=== PATIENT | female | born 1995 | race American Indian/Alaskan Native ===

== ENCOUNTER 2019-09-10 16:31 | Emergency (ER) | payer MEDICAID ==
[2019-09-10 16:53] LABS: Basophils % (Auto) 0.2 % (0.0-1.8); Hematocrit 36.9 % (30.3-42.9); Hemoglobin 12.9 gm/dl (10.1-14.3); Lymphocytes # (Auto) 1.9 K/mm3 (1.2-5.4); Lymphocytes % (Auto) 10.4 % (13.4-35.0); Mean Corpuscular HGB Conc 35 % (30-34); Mean Corpuscular Volume 92 fl (79-97); Monocytes # (Auto) 1.4 K/mm3 (0.0-0.8); Monocytes % (Auto) 7.3 % (0.0-7.3); Platelet Count 340 K/mm3 (140-440); Red Blood Count 3.99 M/mm3 (3.65-5.03); Red Cell Distribution Width 13.5 % (13.2-15.2)
[2019-09-10 17:13] LABS: Alanine Aminotransferase 20 units/L (7-56); Albumin 4.7 g/dL (3.9-5); BUN/Creatinine Ratio 25; Blood Urea Nitrogen 15 mg/dL (7-17); Calcium 9.5 mg/dL (8.4-10.2); Hemolysis Index 4
[2019-09-10] MEDS ORDERED: ONDANSETRON 4 MG/2 ML INJ IV ONE ×2 (17:43→22:07)
[2019-09-10] MEDS ORDERED: D5W/0.9% NACL 1,000 ML IV SCH ×3 (18:00→20:00)
--- NOTE | 2019-09-10 18:21 | Emergency Department Report ---
ED N/V/D HPI - General Chief complaint: Nausea/Vomiting/Diarrhea Stated complaint: N/V PUI?: No Time Seen by Provider: 09/10/19 17:50 Source: patient Mode of arrival: Ambulatory Limitations: No Limitations - History of Present Illness Initial comments: 23-year-old female with no significant past medical surgical history presents to the hospital 8 weeks with p.o. intolerance secondary nausea and vomiting for the past 2 days. This is patient's fourth , she has 1 child, history of 2 abortions. Patient states she had a outpatient ultrasound today showing IUP and was subsequently advised to come to the ED by her [facility] doctor for IV hydration due to p.o. intolerance. Patient is taking Phenergan suppositories without improvement in p.o. intake and nausea. Patient complains generalized dull abdominal pain. She denies hematochezia, hematemesis, diarrhea, fever, melena, dysuria, or cough or cold symptoms. Pt had similar n/v with her last . [facility]: [facility] - Related Data Previous Rx's Medication Instructions Recorded Last Taken Type Ondansetron [Zofran Odt] 4 mg PO Q8HR PRN #20 tab.rapdis 09/10/19 Unknown Rx Allergies Allergy/AdvReac Type Severity Reaction Status Date / Time No Known Allergies Allergy Verified 09/10/19 16:34 ED Review of Systems ROS: Stated complaint: N/V Other details as noted in HPI Comment: All other systems reviewed and negative ED Past Medical Hx - Past Medical History Previous Medical History?: No - Surgical History Past Surgical History?: No - Social History Smoking Status: Never Smoker Substance Use Type: None - Medications Home Medications: Home Medications Medication Instructions Recorded Confirmed Last Taken Type Ondansetron [Zofran Odt] 4 mg PO Q8HR PRN #20 tab.rapdis 09/10/19 Unknown Rx ED Physical Exam - General Limitations: No Limitations - Other Other exam information: General: No acute distress Head: Atraumatic Eyes: normal appearance ENT: Moist mucous membranes Neck: Normal appearance, no midline tenderness Chest: Clear to auscultation bilaterally CV: Regular rate and rhythm Abdomen: Soft, normal bowel sounds, mild epigastric tenderness, nondistended, no rebound or guard Back: Normal inspection Extremity: Normal inspection, full range of motion Neuro: Alert O x 3, no facial asymmetry, speech clear, no gross motor sensory deficit Psych: Appropriate behavior Skin: No rash ED Course Vital Signs 09/10/19 09/10/19 09/10/19 16:35 17:53 19:00 Temperature 98.8 F 98.8 F Pulse Rate 93 H 93 H 80 Respiratory 20 20 15 Rate Blood Pressure 125/72 Blood Pressure 145/89 145/89 [Left] O2 Sat by Pulse 100 100 99 Oximetry 09/10/19 09/10/19 09/10/19 19:07 19:46 20:00 Temperature Pulse Rate 82 83 Respiratory 18 18 15 Rate Blood Pressure 125/72 140/86 Blood Pressure [Left] O2 Sat by Pulse 100 100 100 Oximetry 09/10/19 09/10/19 09/10/19 20:16 20:30 20:46 Temperature Pulse Rate 90 73 85 Respiratory 15 17 16 Rate Blood Pressure 125/72 125/72 125/72 Blood Pressure [Left] O2 Sat by Pulse 99 100 100 Oximetry 09/10/19 09/10/19 09/10/19 21:00 21:24 21:30 Temperature Pulse Rate 87 Respiratory 14 Rate Blood Pressure 131/77 140/86 140/86 Blood Pressure [Left] O2 Sat by Pulse 99 99 100 Oximetry 09/10/19 09/10/19 21:46 21:57 Temperature Pulse Rate 84 Respiratory Rate Blood Pressure 140/86 Blood Pressure [Left] O2 Sat by Pulse 100 Oximetry ED Medical Decision Making - Lab Data Result diagrams: 09/10/19 16:43 09/10/19 16:43 Lab Results 09/10/19 09/10/19 09/10/19 Range/Units 16:43 16:43 16:43 WBC 18.5 H (4.5-11.0) K/mm3 RBC 3.99 (3.65-5.03) M/mm3 Hgb 12.9 (10.1-14.3) gm/dl Hct 36.9 (30.3-42.9) % MCV 92 (79-97) fl MCH 32 (28-32) pg MCHC 35 H (30-34) % RDW 13.5 (13.2-15.2) % Plt Count 340 (140-440) K/mm3 Lymph % (Auto) 10.4 L (13.4-35.0) % Ross % (Auto) 7.3 (0.0-7.3) % Eos % (Auto) 0.0 (0.0-4.3) % Baso % (Auto) 0.2 (0.0-1.8) % Lymph # 1.9 (1.2-5.4) K/mm3 Ross # 1.4 H (0.0-0.8) K/mm3 Eos # 0.0 (0.0-0.4) K/mm3 Baso # 0.0 (0.0-0.1) K/mm3 Seg Neutrophils % 82.1 H (40.0-70.0) % Seg Neutrophils # 15.2 H (1.8-7.7) K/mm3 Sodium 132 L (137-145) mmol/L Potassium 3.0 L (3.6-5.0) mmol/L Chloride 91.8 L (98-107) mmol/L Carbon Dioxide 21 L (22-30) mmol/L Anion Gap 22 mmol/L BUN 15 (7-17) mg/dL Creatinine 0.6 L (0.7-1.2) mg/dL Estimated GFR > 60 ml/min BUN/Creatinine Ratio 25 % Glucose 99 (65-100) mg/dL Calcium 9.5 (8.4-10.2) mg/dL Magnesium (1.7-2.3) mg/dL Total Bilirubin 0.70 (0.1-1.2) mg/dL AST 21 (5-40) units/L ALT 20 (7-56) units/L Alkaline Phosphatase 48 (35-129) units/L Total Protein 8.7 H (6.3-8.2) g/dL Albumin 4.7 (3.9-5) g/dL Albumin/Globulin Ratio 1.2 % Lipase (13-60) units/L HCG, Qual Positive (Negative) Urine Color (Yellow) Urine Turbidity (Clear) Urine pH (5.0-7.0) Ur Specific [place] (1.003-1.030) Urine Protein (Negative) mg/dL Urine Glucose (UA) (Negative) mg/dL Urine Ketones (Negative) mg/dL Urine Blood (Negative) Urine Nitrite (Negative) Urine Bilirubin (Negative) Urine Urobilinogen (<2.0) mg/dL Ur Leukocyte Esterase (Negative) Urine WBC (Auto) (0.0-6.0) /HPF Urine RBC (Auto) (0.0-6.0) /HPF U Epithel Cells (Auto) (0-13.0) /HPF Urine Mucus /HPF 09/10/19 09/10/19 09/10/19 Range/Units 16:43 16:43 Unknown WBC (4.5-11.0) K/mm3 RBC (3.65-5.03) M/mm3 Hgb (10.1-14.3) gm/dl Hct (30.3-42.9) % MCV (79-97) fl MCH (28-32) pg MCHC (30-34) % RDW (13.2-15.2) % Plt Count (140-440) K/mm3 Lymph % (Auto) (13.4-35.0) % Ross % (Auto) (0.0-7.3) % Eos % (Auto) (0.0-4.3) % Baso % (Auto) (0.0-1.8) % Lymph # (1.2-5.4) K/mm3 Ross # (0.0-0.8) K/mm3 Eos # (0.0-0.4) K/mm3 Baso # (0.0-0.1) K/mm3 Seg Neutrophils % (40.0-70.0) % Seg Neutrophils # (1.8-7.7) K/mm3 Sodium (137-145) mmol/L Potassium (3.6-5.0) mmol/L Chloride (98-107) mmol/L Carbon Dioxide (22-30) mmol/L Anion Gap mmol/L BUN (7-17) mg/dL Creatinine (0.7-1.2) mg/dL Estimated GFR ml/min BUN/Creatinine Ratio % Glucose (65-100) mg/dL Calcium (8.4-10.2) mg/dL Magnesium 2.20 (1.7-2.3) mg/dL Total Bilirubin (0.1-1.2) mg/dL AST (5-40) units/L ALT (7-56) units/L Alkaline Phosphatase (35-129) units/L Total Protein (6.3-8.2) g/dL Albumin (3.9-5) g/dL Albumin/Globulin Ratio % Lipase 14 (13-60) units/L HCG, Qual (Negative) Urine Color [place] (Yellow) Urine Turbidity Slightly-cloudy (Clear) Urine pH 6.0 (5.0-7.0) Ur Specific [place] 1.035 H (1.003-1.030) Urine Protein 100 mg/dl (Negative) mg/dL Urine Glucose (UA) Neg (Negative) mg/dL Urine Ketones 80 (Negative) mg/dL Urine Blood Mod (Negative) Urine Nitrite Neg (Negative) Urine Bilirubin Neg (Negative) Urine Urobilinogen 2.0 (<2.0) mg/dL Ur Leukocyte Esterase Neg (Negative) Urine WBC (Auto) 3.0 (0.0-6.0) /HPF Urine RBC (Auto) 57.0 (0.0-6.0) /HPF U Epithel Cells (Auto) 21.0 H (0-13.0) /HPF Urine Mucus 3+ /HPF - Medical Decision Making wbc count 18, no signs of infection at this time pt feeling better after 3 L D5NS and zofran 8mg IV tolerating po. received kcl 40meq x1 will be d/césar with zofran and rec f/u - Differential Diagnosis Gastritis, nausea vomiting in , UTI, biliary colic, pancreatitis Critical Care Time: No Critical care attestation.: If time is entered above; I have spent that time in minutes in the direct care of this critically ill patient, excluding procedure time. ED Disposition Clinical Impression: Nausea and vomiting during , Hypokalemia Disposition: - TO HOME OR SELFCARE Is pt being admited?: No Does the pt Need Aspirin: No Condition: Stable Instructions: Hyperemesis Gravidarum (ED), Hypokalemia (ED) Additional Instructions: Take the medication as prescribed. Follow-up with your doctor or doctor/clinic provided. Return if symptoms worsen as indicated by your discharge instructions. Prescriptions: Ondansetron [Zofran Odt] 4 mg PO Q8HR PRN #20 tab.rapdis PRN Reason: Nausea And Vomiting Referrals: [facility] [Provider Group] - 3-5 Days Time of Disposition: 23:33
[2019-09-10 18:57] LABS: Bilirubin,Urine NEG (Negative); Blood,Urine MOD (Negative); Color,Urine Amber (Yellow); Mucus,Urine 3+ /HPF
[2019-09-10] MEDS ORDERED: POTASSIUM CHLORIDE ER 20 MEQ TAB PO ONE (19:21)
[2019-09-10] MEDS ORDERED: FAMOTIDINE 20 MG/2 ML INJ IV ONE (19:21)
[2019-09-10 23:42] VITALS: BP 126/60
== END 2019-09-10 23:42 | disposition home or self-care (01) ==
LOC: ED 16:31
DX: O21.8 Other vomiting complicating pregnancy (principal); O26.891 Other specified pregnancy related conditions, first trimester; E87.6 Hypokalemia; Z3A.08 8 weeks gestation of pregnancy; Z79.899 Other long term (current) drug therapy
CPT/HCPCS: 36415; 80053; 81001; 83690; 83735; 84703; 85025; 96361; 96374; 96375; 96376; 99284; J2405; J7042

== ENCOUNTER 2019-09-13 09:47 | Emergency (ER) | payer MEDICAID ==
[2019-09-13] MEDS ORDERED: METOCLOPRAMIDE 10 MG/2 ML INJ IV ONE (10:58)
[2019-09-13] MEDS ORDERED: FAMOTIDINE 20 MG/2 ML INJ IV ONE (10:58)
[2019-09-13] MEDS ORDERED: D5W/0.9% NACL 1,000 ML IV SCH ×2 (11:00)
--- NOTE | 2019-09-13 11:01 | Emergency Department Report ---
ED N/V/D HPI - General Chief complaint: Nausea/Vomiting/Diarrhea Stated complaint: 8WKS /N/V Time Seen by Provider: 09/13/19 10:56 Source: patient Mode of arrival: Ambulatory Limitations: No Limitations - History of Present Illness Initial comments: Patient is a 23-year-old F [place] female was approximately 8 weeks who is presenting with nausea vomiting. Patient states she is only been able to keep very small amounts of water down the last several days. Patient was here 3 days ago and received 3 L of D5 normal saline and Zofran. Patient states she was feeling much improved at the time of discharge and for the first 24 hours a fter leaving the emergency department but her symptoms returned. Patient is having difficulty sleeping and she does feel some dizziness upon standing. She denies vaginal bleeding discharge or dysuria. States she has some vomit which was blood-tinged earlier today. - Related Data Previous Rx's Medication Instructions Recorded Last Taken Type Ondansetron [Zofran Odt] 4 mg PO Q8HR PRN #20 tab.rapdis 09/10/19 Unknown Rx Promethazine [Phenergan] 25 mg [place] Q6HR PRN #14 supp.rect 09/13/19 Unknown Rx Allergies Allergy/AdvReac Type Severity Reaction Status Date / Time No Known Allergies Allergy Verified 09/10/19 16:34 ED Review of Systems ROS: Stated complaint: 8WKS /N/V Other details as noted in HPI Comment: All other systems reviewed and negative ED Past Medical Hx - Past Medical History Previous Medical History?: Yes Additional medical history: Hyperemesis gravidarum - Surgical History Past Surgical History?: No - Social History Smoking Status: Never Smoker Substance Use Type: None - Medications Home Medications: Home Medications Medication Instructions Recorded Confirmed Last Taken Type Ondansetron [Zofran Odt] 4 mg PO Q8HR PRN #20 tab.rapdis 09/10/19 Unknown Rx Promethazine [Phenergan] 25 mg [place] Q6HR PRN #14 supp.rect 09/13/19 Unknown Rx ED Physical Exam - General Limitations: No Limitations General appearance: alert, in no apparent distress - Head Head exam: Present: atraumatic, normocephalic - Eye Eye exam: Present: normal appearance - ENT ENT exam: Present: normal orophraynx, mucous membranes moist - Neck Neck exam: Present: normal inspection - Respiratory Respiratory exam: Present: normal lung sounds bilaterally. Absent: respiratory distress, wheezes, rales - Cardiovascular Cardiovascular Exam: Present: regular rate, normal rhythm, normal heart sounds. Absent: systolic murmur, diastolic murmur, rubs, gallop - GI/Abdominal GI/Abdominal exam: Present: soft, tenderness (Epigastric), normal bowel sounds. Absent: distended, guarding, rebound - Extremities Exam Extremities exam: Present: normal inspection - Back Exam Back exam: Present: normal inspection - Neurological Exam Neurological exam: Present: alert, oriented X3 - Psychiatric Psychiatric exam: Present: normal affect, normal mood - Skin Skin exam: Present: warm, dry, intact, normal color. Absent: rash ED Course Vital Signs 09/13/19 09/13/19 09:50 12:13 Temperature 98.5 F Pulse Rate 115 H 91 H Respiratory 20 16 Rate Blood Pressure 152/99 Blood Pressure 137/95 [Left] O2 Sat by Pulse 100 99 Oximetry ED Medical Decision Making - Lab Data Result diagrams: 09/13/19 11:23 09/13/19 11:23 Lab Results 09/13/19 09/13/19 09/13/19 Range/Units 11:23 11:23 12:12 WBC 15.5 H (4.5-11.0) K/mm3 RBC 4.38 (3.65-5.03) M/mm3 Hgb 14.2 (10.1-14.3) gm/dl Hct 40.1 (30.3-42.9) % MCV 91 (79-97) fl MCH 33 H (28-32) pg MCHC 36 H (30-34) % RDW 13.2 (13.2-15.2) % Plt Count 334 (140-440) K/mm3 Lymph % (Auto) 10.1 L (13.4-35.0) % [place] % (Auto) 6.9 (0.0-7.3) % Eos % (Auto) 0.2 (0.0-4.3) % Baso % (Auto) 0.3 (0.0-1.8) % Lymph # 1.6 (1.2-5.4) K/mm3 [place] # 1.1 H (0.0-0.8) K/mm3 Eos # 0.0 (0.0-0.4) K/mm3 Baso # 0.0 (0.0-0.1) K/mm3 Seg Neutrophils % 82.5 H (40.0-70.0) % Seg Neutrophils # 12.8 H (1.8-7.7) K/mm3 Sodium 130 L (137-145) mmol/L Potassium 3.2 L (3.6-5.0) mmol/L Chloride 93.2 L (98-107) mmol/L Carbon Dioxide 18 L (22-30) mmol/L Anion Gap 22 mmol/L BUN 12 (7-17) mg/dL Creatinine 0.6 L (0.7-1.2) mg/dL Estimated GFR > 60 ml/min BUN/Creatinine Ratio 20 % Glucose 94 (65-100) mg/dL Calcium 9.6 (8.4-10.2) mg/dL Total Bilirubin 0.60 (0.1-1.2) mg/dL AST 18 (5-40) units/L ALT 21 (7-56) units/L Alkaline Phosphatase 54 (35-129) units/L Total Protein 8.3 H (6.3-8.2) g/dL Albumin 4.7 (3.9-5) g/dL Albumin/Globulin Ratio 1.3 % Lipase 15 (13-60) units/L Urine Color Yellow (Yellow) Urine Turbidity Clear (Clear) Urine pH 6.0 (5.0-7.0) Ur Specific [place] 1.030 (1.003-1.030) Urine Protein 100 mg/dl (Negative) mg/dL Urine Glucose (UA) Neg (Negative) mg/dL Urine Ketones 80 (Negative) mg/dL Urine Blood Sm (Negative) Urine Nitrite Neg (Negative) Urine Bilirubin Neg (Negative) Urine Urobilinogen 2.0 (<2.0) mg/dL Ur Leukocyte Esterase Neg (Negative) Urine WBC (Auto) 5.0 (0.0-6.0) /HPF Urine RBC (Auto) 17.0 (0.0-6.0) /HPF U Epithel Cells (Auto) 9.0 (0-13.0) /HPF Urine Bacteria (Auto) 1+ (Negative) /HPF Urine Mucus 3+ /HPF - Medical Decision Making Patient is a 23-year-old F [place] female approximately 8 weeks who is presenting with uncontrollable nausea and vomiting. Patient still has a considerable amount of ketones in her urine. Patient was given 2 L of D5 normal saline and she states she is much improved. Patient was able to tolerate p.o. Patient has been on Zofran ODT at home will also give her some Phenergan suppositories as well. Patient be discharged. Critical care attestation.: If time is entered above; I have spent that time in minutes in the direct care of this critically ill patient, excluding procedure time. ED Disposition Clinical Impression: Hyperemesis gravidarum, Dehydration, Ketonuria, Nausea and vomiting during Disposition: DC-01 TO HOME OR SELFCARE Is pt being admited?: No Does the pt Need Aspirin: No Condition: Stable Instructions: Hyperemesis Gravidarum (ED) Prescriptions: Promethazine [Phenergan] 25 mg [place] Q6HR PRN #14 supp.rect PRN Reason: Nausea Time of Disposition: 14:37
[2019-09-13 11:36] LABS: Basophils % (Auto) 0.3 % (0.0-1.8); Eosinophils % (Auto) 0.2 % (0.0-4.3); Hematocrit 40.1 % (30.3-42.9); Hemoglobin 14.2 gm/dl (10.1-14.3); Lymphocytes # (Auto) 1.6 K/mm3 (1.2-5.4); Lymphocytes % (Auto) 10.1 % (13.4-35.0); Mean Corpuscular HGB Conc 36 % (30-34); Mean Corpuscular Volume 91 fl (79-97); Monocytes # (Auto) 1.1 K/mm3 (0.0-0.8); Monocytes % (Auto) 6.9 % (0.0-7.3); Platelet Count 334 K/mm3 (140-440); Red Blood Count 4.38 M/mm3 (3.65-5.03); Red Cell Distribution Width 13.2 % (13.2-15.2)
[2019-09-13 11:55] LABS: Alanine Aminotransferase 21 units/L (7-56); Albumin 4.7 g/dL (3.9-5); BUN/Creatinine Ratio 20; Blood Urea Nitrogen 12 mg/dL (7-17); Calcium 9.6 mg/dL (8.4-10.2); Hemolysis Index 27
[2019-09-13 13:00] LABS: Bacteria,Urine 1+ /HPF (Negative); Bilirubin,Urine NEG (Negative); Blood,Urine SM (Negative); Color,Urine Yellow (Yellow); Mucus,Urine 3+ /HPF
[2019-09-13 14:37] VITALS: BP 133/85
== END 2019-09-13 15:29 | disposition home or self-care (01) ==
LOC: ED 09:47
DX: O21.0 Mild hyperemesis gravidarum (principal); O21.9 Vomiting of pregnancy, unspecified; O26.891 Other specified pregnancy related conditions, first trimester; E86.0 Dehydration; R82.4 Acetonuria; Z79.899 Other long term (current) drug therapy; Z3A.08 8 weeks gestation of pregnancy
CPT/HCPCS: 36415; 80053; 81001; 83690; 85025; 96361; 96374; 96375; 99283; J2765; J7042

== ENCOUNTER 2019-10-08 16:40 | Emergency (ER) | payer MEDICAID ==
[2019-10-08] MEDS ORDERED: diphenhydrAMINE 50 MG/ML VIAL IV ONE (17:25)
[2019-10-08] MEDS ORDERED: SODIUM CHLORIDE 0.9% 1000 ML 1,000 ML IV ONE (17:25)
[2019-10-08] MEDS ORDERED: METOCLOPRAMIDE 10 MG/2 ML INJ IV ONE (17:25)
--- NOTE | 2019-10-08 17:27 | Event Note ---
ED Screening Note Date of service: 10/08/19 Time: 17:23 ED Screening Note: This is a 23-year-old G2, P1 who presents the ED at approximately 12-week gestation followed by [facility] [employer] presents to ED with vomiting that began that began this morning and has been unable to eat any food. This initial assessment/diagnostic orders/clinical plan/treatment(s) is/are subject to change based on patients health status, clinical progression and re- assessment by fellow clinical providers in the ED. Further treatment and workup at subsequent clinical providers discretion. Patient/guardian urged not to elope from the ED as their condition may be serious if not clinically assessed and managed. Initial orders include: Labs, IVF, Zofran
[2019-10-08 18:09] LABS: Hematocrit 34.2 % (30.3-42.9); Hemoglobin 11.6 gm/dl (10.1-14.3); Mean Corpuscular HGB Conc 34 % (30-34); Mean Corpuscular Volume 93 fl (79-97); Platelet Count 318 K/mm3 (140-440); Red Blood Count 3.67 M/mm3 (3.65-5.03); Red Cell Distribution Width 13.6 % (13.2-15.2)
[2019-10-08 18:23] LABS: Alanine Aminotransferase 12 units/L (7-56); Albumin 4.2 g/dL (3.9-5); BUN/Creatinine Ratio 14; Blood Urea Nitrogen 7 mg/dL (7-17); Calcium 9.8 mg/dL (8.4-10.2); Hemolysis Index 4
[2019-10-08 18:32] LABS: Bilirubin,Urine NEG (Negative); Blood,Urine NEG (Negative); Color,Urine Yellow (Yellow); Mucus,Urine 3+ /HPF; Urobilinogen,Urine < 2.0 mg/dL (<2.0)
--- NOTE | 2019-10-08 19:11 | Emergency Department Report ---
ED N/V/D HPI - General Chief complaint: Abdominal Pain Stated complaint: 12 WKS /VOMITING Time Seen by Provider: 10/08/19 19:04 Source: patient Mode of arrival: Ambulatory Limitations: No Limitations - History of Present Illness Initial comments: This is a 23-year-old female nontoxic, well nourished in appearance, no acute signs of distress presents to the ED with c/o of nausea and vomiting 1 day. Patient is 12 weeks . Denies any vaginal bleeding. Patient describes vomiting as food content. Patient denies any abdominal pain, pelvic pain, chest pain, short of breath, fever, chills, headache, stiff neck, numbness or tingling. Patient denies any diarrhea or constipation. Denies any blood in stool. Patient denies any recent travels. Patient denies any drug allergies significant past medical history. MD complaint: nausea, vomiting -: days(s) Description of Vomiting: food contents Associated Abdominal Pain: No Radiation: none Pain Scale: 0 Improves with: none Worsens with: none Associated Symptoms: nausea/vomiting. denies: myalgias, chest pain, cough, diaphoresis, fever/chills, headaches, loss of appetite, malaise, rash, dysuria, shortness of breath, syncope, weakness - Related Data Previous Rx's Medication Instructions Recorded Last Taken Type Ondansetron [Zofran Odt] 4 mg PO Q8HR PRN #20 tab.rapdis 09/10/19 Unknown Rx Promethazine [Phenergan] 25 mg [place] Q6HR PRN #14 supp.rect 09/13/19 Unknown Rx Metoclopramide [Reglan] 10 mg PO Q12H PRN #12 tab 10/08/19 Unknown Rx Allergies Allergy/AdvReac Type Severity Reaction Status Date / Time No Known Allergies Allergy Verified 09/10/19 16:34 ED Review of Systems ROS: Stated complaint: 12 WKS /VOMITING Other details as noted in HPI Constitutional: denies: chills, fever Eyes: denies: eye pain, eye discharge, vision change ENT: denies: ear pain, throat pain Respiratory: denies: cough, shortness of breath, wheezing Cardiovascular: denies: chest pain, palpitations Endocrine: no symptoms reported Gastrointestinal: nausea, vomiting. denies: abdominal pain, diarrhea Genitourinary: denies: urgency, dysuria, discharge Musculoskeletal: denies: back pain, joint swelling, arthralgia Skin: denies: rash, lesions Neurological: denies: headache, weakness, paresthesias Psychiatric: denies: anxiety, depression Hematological/Lymphatic: denies: easy bleeding, easy bruising ED Past Medical Hx - Past Medical History Previous Medical History?: Yes Additional medical history: Hyperemesis gravidarum - Surgical History Past Surgical History?: No - Social History Smoking Status: Never Smoker Substance Use Type: None - Medications Home Medications: Home Medications Medication Instructions Recorded Confirmed Last Taken Type Ondansetron [Zofran Odt] 4 mg PO Q8HR PRN #20 tab.rapdis 09/10/19 Unknown Rx Promethazine [Phenergan] 25 mg [place] Q6HR PRN #14 supp.rect 09/13/19 Unknown Rx Metoclopramide [Reglan] 10 mg PO Q12H PRN #12 tab 10/08/19 Unknown Rx ED Physical Exam - General Limitations: No Limitations General appearance: alert, in no apparent distress - Head Head exam: Present: atraumatic, normocephalic - Eye Eye exam: Present: normal appearance - Neck Neck exam: Present: normal inspection, full ROM. Absent: tenderness, meningismus, lymphadenopathy - Respiratory Respiratory exam: Present: normal lung sounds bilaterally. Absent: respiratory distress, wheezes, rales, rhonchi, stridor, chest wall tenderness, accessory muscle use, decreased breath sounds, prolonged expiratory - Cardiovascular Cardiovascular Exam: Present: regular rate, normal rhythm, normal heart sounds. Absent: bradycardia, tachycardia, irregular rhythm, systolic murmur, diastolic murmur, rubs, gallop - GI/Abdominal GI/Abdominal exam: Present: soft, normal bowel sounds. Absent: distended, tenderness, guarding, rebound, rigid, diminished bowel sounds - Extremities Exam Extremities exam: Present: normal inspection, full ROM - Back Exam Back exam: Present: normal inspection, full ROM - Neurological Exam Neurological exam: Present: alert, oriented X3, normal gait - Psychiatric Psychiatric exam: Present: normal affect, normal mood - Skin Skin exam: Present: warm, dry, intact, normal color. Absent: rash ED Course Vital Signs 10/08/19 10/08/19 16:45 18:16 Temperature 97.9 F Pulse Rate 86 Respiratory 20 20 Rate Blood Pressure 152/101 O2 Sat by Pulse 99 99 Oximetry - Reevaluation(s) Reevaluation #1: 10/08/19 19:11 Patient is speaking in full sentences with no signs of distress noted. ED Medical Decision Making - Lab Data Result diagrams: 10/08/19 17:32 10/08/19 17:32 - Medical Decision Making This is a 23-year-old female that presents with hyperemesis gravidarum. Patient is stable and was examined by me. There is no abdominal tenderness. Negative signs of symptoms of appendicitis, cholecystitis or acute abdomen. Labs obtained. UA obtained. Patient is notified of the report with no questions noted by the patient. Vital signs are stable prior to discharge. Patient received medical treatment in the ED which patient stated symptoms has resovled and subsided. A by mouth challenge has been obtained and patient tolerated well with no nausea vomiting. Patient was also instructed to Follow-up with a OBGYN doctor in 3-5 days or if symptoms worsen and continue return to emergency room as soon as possible. At time of discharge, the patient does not seem toxic or ill in appearance. No acute signs of distress noted. Patient agrees to discharge treatment plan of care. No further questions noted by the patient. Critical care attestation.: If time is entered above; I have spent that time in minutes in the direct care of this critically ill patient, excluding procedure time. ED Disposition Clinical Impression: Hyperemesis gravidarum Disposition: DC-01 TO HOME OR SELFCARE Is pt being admited?: No Does the pt Need Aspirin: No Condition: Stable Instructions: Hyperemesis Gravidarum (ED) Additional Instructions: Follow-up with a OBGYN doctor in 3-5 days or if symptoms worsen and continue return to emergency room as soon as possible. Prescriptions: Metoclopramide [Reglan] 10 mg PO Q12H PRN #12 tab PRN Reason: Nausea Referrals: PRIMARY CARE, [Primary Care Provider] - 3-5 Days KAREN EMMANUEL MD [Staff Physician] - 3-5 Days [facility] [Provider Group] - 3-5 Days Forms: Work/School Release Form(ED)
[2019-10-08 19:30] LABS: Basophils % (Manual) 0 % (0.0-1.8); Eosinophils % (Manual) 0 % (0.0-4.3); RBC Morphology Normal; Total Cells Counted 100
[2019-10-08 19:31] VITALS: BP 134/96
== END 2019-10-08 19:29 | disposition home or self-care (01) ==
LOC: ED 16:40
DX: O21.0 Mild hyperemesis gravidarum (principal); Z3A.12 12 weeks gestation of pregnancy; Z79.899 Other long term (current) drug therapy
CPT/HCPCS: 36415; 80053; 81001; 83690; 85007; 85025; 96361; 96374; 96375; 99283; J1200; J2765; J7030

== ENCOUNTER 2019-10-14 00:14 | Emergency (ER) | payer MEDICAID ==
[2019-10-14 00:33] VITALS: BP 140/93
[2019-10-14 01:08] LABS: Basophils % (Auto) 0.1 % (0.0-1.8); Hematocrit 34.9 % (30.3-42.9); Hemoglobin 12.6 gm/dl (10.1-14.3); Lymphocytes # (Auto) 1.3 K/mm3 (1.2-5.4); Lymphocytes % (Auto) 8.5 % (13.4-35.0); Mean Corpuscular HGB Conc 36 % (30-34); Mean Corpuscular Volume 93 fl (79-97); Monocytes % (Auto) 6.9 % (0.0-7.3); Platelet Count 373 K/mm3 (140-440); Red Blood Count 3.74 M/mm3 (3.65-5.03); Red Cell Distribution Width 13.1 % (13.2-15.2)
[2019-10-14 01:30] LABS: Alanine Aminotransferase 19 units/L (7-56); Albumin 4.3 g/dL (3.9-5); BUN/Creatinine Ratio 10; Blood Urea Nitrogen 6 mg/dL (7-17); Calcium 9.5 mg/dL (8.4-10.2); Hemolysis Index 1
[2019-10-14 01:43] LABS: Bilirubin,Urine SM (Negative); Blood,Urine MOD (Negative); Color,Urine Amber (Yellow); Mucus,Urine 3+ /HPF
[2019-10-14 01:53] LABS: Ictotest,Urine Negative (Negative)
[2019-10-14] MEDS ORDERED: METOCLOPRAMIDE 10 MG/2 ML INJ IV STA (02:05)
[2019-10-14] MEDS ORDERED: PYRIDOXINE 50 MG TAB PO STA (02:05)
[2019-10-14] MEDS ORDERED: diphenhydrAMINE 50 MG/ML VIAL IV STA (02:05)
[2019-10-14] MEDS ORDERED: SODIUM CHLORIDE 0.9% 1000 ML 1,000 ML IV ONE (02:05)
--- NOTE | 2019-10-14 02:09 | Emergency Department Report ---
ED N/V/D HPI - General Chief complaint: Nausea/Vomiting/Diarrhea Stated complaint: VOMITING(APPROX 13 WKS PREG) Time Seen by Provider: 10/14/19 02:04 Source: patient Mode of arrival: Ambulatory Limitations: No Limitations - History of Present Illness Initial comments: 23-year-old F Filipino female 13 weeks presents emergency department complaining of a continuous cyclic episode of hyperemesis gravidarum was here a few a few days ago treated in the hospital symptoms completely resolve while she was here but she returned to taking the Phenergan suppository that was applied by her [facility] and her symptoms began to reemerge. She attempted to be seen at her at her [facility] twice since she was last seen at this facility but was unsuccessful with obtaining a person to speak to in the office. States that is been very hard to follow-up or have the doctor call you back for reasons unknown so she came to the emergency department for further evaluation and treatment options. Reports no vaginal bleeding no hemoptysis no hematemesis no hematoch ezia. Does have some cramping to her lower lower abdomen off and on states that she is had some mild weight loss which she thinks is been due to the vomiting. - Related Data Previous Rx's Medication Instructions Recorded Last Taken Type Ondansetron [Zofran Odt] 4 mg PO Q8HR PRN #20 tab.rapdis 09/10/19 Unknown Rx Promethazine [Phenergan] [address] Q6HR PRN #14 supp.rect 09/13/19 Unknown Rx Metoclopramide [Reglan] 10 mg PO Q12H PRN #12 tab 10/08/19 Unknown Rx Doxylamine Succinate/Vit B6 1 each PO TID #30 tablet. 10/14/19 Unknown Rx [Roro Hurtado 10-10 mg Tablet] Allergies Allergy/AdvReac Type Severity Reaction Status Date / Time No Known Allergies Allergy Verified 09/10/19 16:34 ED Review of Systems ROS: Stated complaint: VOMITING(APPROX 13 WKS PREG) Other details as noted in HPI Comment: All other systems reviewed and negative ED Past Medical Hx - Past Medical History Previous Medical History?: Yes Additional medical history: Hyperemesis gravidarum - Surgical History Past Surgical History?: No - Social History Smoking Status: Never Smoker Substance Use Type: None - Medications Home Medications: Home Medications Medication Instructions Recorded Confirmed Last Taken Type Ondansetron [Zofran Odt] 4 mg PO Q8HR PRN #20 tab.rapdis 09/10/19 Unknown Rx Promethazine [Phenergan] [address] Q6HR PRN #14 supp.rect 09/13/19 Unknown Rx Metoclopramide [Reglan] 10 mg PO Q12H PRN #12 tab 10/08/19 Unknown Rx Doxylamine Succinate/Vit B6 1 each PO TID #30 tablet. 10/14/19 Unknown Rx [Roro Hurtado 10-10 mg Tablet] ED Physical Exam - General Limitations: No Limitations General appearance: alert, in no apparent distress - Head Head exam: Present: atraumatic, normocephalic - Eye Eye exam: Present: normal appearance, PERRL, EOMI - ENT ENT exam: Present: normal exam, mucous membranes moist, TM's normal bilaterally - Neck Neck exam: Present: normal inspection, full ROM - Respiratory Respiratory exam: Present: normal lung sounds bilaterally. Absent: respiratory distress, wheezes, rales, rhonchi, chest wall tenderness, accessory muscle use, decreased breath sounds - Cardiovascular Cardiovascular Exam: Present: regular rate, normal rhythm. Absent: systolic murmur, diastolic murmur, rubs, gallop - GI/Abdominal GI/Abdominal exam: Present: soft, normal bowel sounds - Extremities Exam Extremities exam: Present: normal inspection, normal capillary refill - Back Exam Back exam: Present: normal inspection. Absent: CVA tenderness (R), CVA tenderness (L) - Neurological Exam Neurological exam: Present: alert, oriented X3. Absent: CN II-XII intact - Psychiatric Psychiatric exam: Present: normal affect, normal mood - Skin Skin exam: Present: warm, dry, intact, normal color. Absent: rash ED Course Vital Signs 10/14/19 10/14/19 00:25 04:45 Temperature 99.1 F Pulse Rate 102 H 87 Respiratory 16 16 Rate Blood Pressure 140/93 O2 Sat by Pulse 100 97 Oximetry ED Medical Decision Making - Lab Data Result diagrams: 10/14/19 00:39 10/14/19 00:39 Critical care attestation.: If time is entered above; I have spent that time in minutes in the direct care of this critically ill patient, excluding procedure time. ED Disposition Clinical Impression: Hyperemesis gravidarum Disposition: - TO HOME OR SELFCARE Is pt being admited?: No Does the pt Need Aspirin: No Condition: Stable Prescriptions: Doxylamine Succinate/Vit B6 [Roro Hurtado 10-10 mg Tablet] 1 each PO TID #30 tablet. Referrals: PRIMARY CARE, [Primary Care Provider] - 3-5 Days [facility] [Provider Group] - 3-5 Days
--- NOTE | 2019-10-14 04:15 | Ultrasound Report ---
US OB <= 14 weeks fetus INDICATION / CLINICAL INFORMATION: Vaginal bleeding pain. COMPARISON: None available. FINDINGS: Single, viable intrauterine . heart rate 155. [place]-rump length measures 73 mm, corresponding to a gestational age of 13 weeks 3 days. Both ovaries are normal. No free fluid. IMPRESSION: 1. Viable, intrauterine 13 week 3 day . Signer Name: Jesu Burr MD Signed: 10/14/2019 4:10 AM Workstation Name: [email or web address]
== END 2019-10-14 04:45 | disposition home or self-care (01) ==
LOC: ED 00:14
DX: O21.0 Mild hyperemesis gravidarum (principal); Z3A.13 13 weeks gestation of pregnancy; Z79.899 Other long term (current) drug therapy
CPT/HCPCS: 36415; 76801; 80053; 81001; 83690; 84702; 85025; 96361; 96374; 96375; 99284; J1200; J2765; J7030

== ENCOUNTER 2021-01-31 17:42 | Emergency (ER) | payer MEDICAID ==
[2021-01-31] MEDS ORDERED: METOCLOPRAMIDE 10 MG/2 ML INJ IV ONE (19:19)
[2021-01-31] MEDS ORDERED: diphenhydrAMINE 50 MG/ML VIAL IV ONE (19:19)
[2021-01-31] MEDS ORDERED: PANTOPRAZOLE 40 MG INJ IV ONE (19:19)
[2021-01-31] MEDS ORDERED: SODIUM CHLORIDE 0.9% 1000 ML 1,000 ML IV ONE (19:21)
--- NOTE | 2021-01-31 19:29 | Emergency Department Report ---
ED General Adult HPI - General Chief complaint: Nausea/Vomiting/Diarrhea Stated complaint: ALCOHOL POISON Time Seen by Provider: 01/31/21 19:12 Source: patient Mode of arrival: Ambulatory Limitations: No Limitations - History of Present Illness Initial comments: 25-year-old -[place] female patient presents with complaints of epigastric pain and vomiting x5 days. Patient states she believes she has alcohol poisoning due to drinking that day, however states she did not drink very much. She states she has not been able to keep anything down since the onset of her symptoms and does admit to hematemesis and coffee-ground emesis. She rates her abdominal pain as a 7/10 in severity. She denies any past medical history or history of abdominal surgeries. She also denies chest pain, cough, or shortness of breath. Last menstrual cycle was approximately 3 weeks ago per patient. No diarrhea/melena/hematochezia per patient - Related Data Previous Rx's Medication Instructions Recorded Last Taken Type Ferrous Sulfate [Feosol 325 MG tab] 325 mg PO BID #60 tablet 01/08/20 Unknown Rx Ibuprofen [Motrin] 800 mg PO Q8HR PRN #30 tablet 01/08/20 Unknown Rx oxyCODONE /ACETAMINOPHEN [Percocet 1 tab PO Q6HR PRN #40 tablet 01/08/20 Unknown Rx 5/325] Ondansetron [Zofran Odt] 4 mg PO Q8HR PRN #15 tab.rapdis 02/01/21 Unknown Rx Pantoprazole [Protonix TAB] 20 mg PO QAM #14 tablet. 02/01/21 Unknown Rx Allergies Allergy/AdvReac Type Severity Reaction Status Date / Time No Known Allergies Allergy Verified 09/10/19 16:34 ED Review of Systems ROS: Stated complaint: ALCOHOL POISON Other details as noted in HPI Constitutional: malaise. denies: chills, diaphoresis, fever, weakness ENT: denies: throat pain Respiratory: denies: cough, shortness of breath Cardiovascular: denies: chest pain Gastrointestinal: abdominal pain, nausea, vomiting. denies: diarrhea, constipation, hematemesis, melena, hematochezia Genitourinary: denies: urgency, dysuria, frequency, hematuria Musculoskeletal: denies: back pain Neurological: denies: headache, weakness, numbness, paresthesias Hematological/Lymphatic: denies: easy bleeding, easy bruising, swollen glands ED Past Medical Hx - Past Medical History Previous Medical History?: No Hx Hypertension: No Hx Diabetes: No Hx Deep Vein Thrombosis: No Hx Renal Disease: No Hx Sickle Cell Disease: No Hx Seizures: No Hx Asthma: No Hx COPD: No Hx HIV: No Additional medical history: Hyperemesis gravidarum - Social History Smoking Status: Former Smoker - Medications Home Medications: Home Medications Medication Instructions Recorded Confirmed Last Taken Type Ferrous Sulfate [Feosol 325 MG tab] 325 mg PO BID #60 tablet 01/08/20 Unknown Rx Ibuprofen [Motrin] 800 mg PO Q8HR PRN #30 tablet 01/08/20 Unknown Rx oxyCODONE /ACETAMINOPHEN [Percocet 1 tab PO Q6HR PRN #40 tablet 01/08/20 Unknown Rx 5/325] Ondansetron [Zofran Odt] 4 mg PO Q8HR PRN #15 tab.rapdis 02/01/21 Unknown Rx Pantoprazole [Protonix TAB] 20 mg PO QAM #14 tablet. 02/01/21 Unknown Rx ED Physical Exam - General Limitations: No Limitations General appearance: alert, in no apparent distress - Head Head exam: Present: atraumatic, normocephalic - Eye Eye exam: Present: normal appearance. Absent: scleral icterus - Neck Neck exam: Present: normal inspection - Respiratory Respiratory exam: Present: normal lung sounds bilaterally. Absent: respiratory distress - Cardiovascular Cardiovascular Exam: Present: regular rate, normal rhythm - GI/Abdominal GI/Abdominal exam: Present: soft, tenderness (Epigastric), normal bowel sounds. Absent: distended, guarding, rigid - Extremities Exam Extremities exam: Present: full ROM - Back Exam Back exam: Present: normal inspection - Neurological Exam Neurological exam: Present: alert, oriented X3 - Psychiatric Psychiatric exam: Present: normal affect, normal mood - Skin Skin exam: Present: warm, dry, intact, normal color. Absent: rash ED Course Vital Signs 01/31/21 01/31/21 01/31/21 17:49 19:42 22:19 Temperature 98.5 F 99.0 F Pulse Rate 105 H 95 H Respiratory 20 14 Rate Blood Pressure 152/125 Blood Pressure 141/98 156/101 [Right] O2 Sat by Pulse 100 100 Oximetry 01/31/21 02/01/21 22:20 01:09 Temperature 98.4 F Pulse Rate 68 Respiratory 16 Rate Blood Pressure Blood Pressure 128/68 [Right] O2 Sat by Pulse 100 100 Oximetry ED Medical Decision Making - Lab Data Result diagrams: 01/31/21 19:24 02/01/21 01:16 - Radiology Data Radiology results: report reviewed CT ABDOMEN AND PELVIS WITH CONTRAST INDICATION / CLINICAL INFORMATION: N/V, epigastric pain, coffee ground emesis. TECHNIQUE: Axial CT images were obtained through the abdomen and pelvis after IV contrast. All CT scans at this location are performed using CT dose reduction for ALARA by means of automated exposure control. COMPARISON: None available. FINDINGS: LOWER CHEST: No significant abnormality. LIVER: No significant abnormality. GALLBLADDER: No significant abnormality. BILE DUCTS: No significant abnormality. PANCREAS: No significant abnormality. SPLEEN: No significant abnormality. ADRENALS: No significant abnormality. RIGHT KIDNEY / URETER: No significant abnormality. LEFT KIDNEY / URETER: No significant abnormality. STOMACH / SMALL BOWEL: No significant abnormality. COLON: No significant abnormality. APPENDIX: Nonvisualized. No pericecal inflammation. PERITONEUM: No free fluid. No free air. No fluid collection. LYMPH NODES: No significant adenopathy. AORTA / ARTERIES: No significant abnormality. IVC / VEINS: No significant abnormality. URINARY BLADDER: No significant abnormality. REPRODUCTIVE ORGANS: No significant abnormality. Trace free fluid within the pelvis, presumably physiologic. ADDITIONAL FINDINGS: None. SKELETAL SYSTEM: No significant abnormality. IMPRESSION: 1. No acute abnormality. - Medical Decision Making 25-year-old -[place] female patient presents with complaints of epigastric pain and vomiting x5 days. Patient states she believes she has alcohol poisoning due to drinking that day, however states she did not drink very much. She states she has not been able to keep anything down since the onset of her symptoms and does admit to hematemesis and coffee-ground emesis. She rates her abdominal pain as a 7/10 in severity. She denies any past medical history or history of abdominal surgeries. She also denies chest pain, cough, or shortness of breath. Last menstrual cycle was approximately 3 weeks ago per patient. No diarrhea/melena/hematochezia per patient CT abdomen is negative for any acute abnormalities. White count normal CBC. Patient now tolerating fluids p.o. after IV antiemetics. CMP shows hypokalemia with a potassium of 3.0 and metabolic acidosis with a CO2 of 21 and anion gap of 23. Patient given 2 L of lactated Ringer's and 1 L of normal saline along with 20 mEq of IV potassium and 40 mEq of p.o. potassium. Anion gap now 17 with a CO2 of 23 and potassium of 4.7. Patient states she is feeling well. Discussed need for rectal exam to assess for blood in stools, however patient declines and states she would like to go home and does not wish to have this exam performed. She is hemodynamically stable, her vitals are normal, she is stable for discharge home. Upon further questioning patient admitted to use of marijuana and improvement of her symptoms only with hot showers. Suspect patient's symptoms are due to cannabinoid hyperemesis syndrome and the importance of fernando sation of marijuana use was discussed in detail with patient. Prescriptions for Protonix and Zofran given for home. Patient to follow-up PCP in 3 to 5 days. Discussed in detail signs and symptoms that should prompt immediate return to the ER, patient verbalizes understanding. Critical care attestation.: If time is entered above; I have spent that time in minutes in the direct care of this critically ill patient, excluding procedure time. ED Disposition Clinical Impression: Epigastric pain, Hypokalemia Nausea & vomiting Qualifiers: Vomiting Intractability: non-intractable Disposition: 01 HOME / SELF CARE / HOMELESS Is pt being admited?: No Condition: Stable Instructions: Nausea, Adult Additional Instructions: Patient education: Cannabis hyperemesis syndrome (The Basics) Written by the doctors and editors at [facility] What is cannabis hyperemesis syndrome? Cannabis hyperemesis syndrome is a condition that causes frequent vomiting, or throwing up. It can happen in people who have been using cannabis (marijuana) regularly for at least a year. It is sometimes called "cannabinoid hyperemesis syndrome." Cannabis hyperemesis syndrome is uncommon. But it might be happening more as cannabis products become legal in more places. It is more likely to affect teenage and young adult males. What are the symptoms of cannabis hyperemesis syndrome? The main symptom is repeated, severe episodes of vomiting. A person might vomit up to 6 to 8 times per hour during an episode. These episodes can last for up to a few days. Then the cycle repeats every few weeks or months. In addition to vomiting, symptoms can include: -Nausea -Belly pain -Feeling very tired -Pale skin -Diarrhea Lots of vomiting can lead to dehydration. This is when the body loses too much water. Often, people with cannabis hyperemesis syndrome take a lot of very hot showers or baths. This sometimes helps them feel better temporarily. Should I see a doctor or nurse? Yes. If you have repeated episodes of vomiting or belly pain, call your doctor or nurse. They will ask about your symptoms and do an exam. They will also ask you questions about your cannabis use, including how long you have been using it, what products you use, and how often you use it. It's important to be honest in your answers, since this information will help your doctor or nurse figure out what is causing your symptoms. You should also call your doctor or nurse if you have any signs of dehydration, such as: -Feeling very tired -Being very thirsty or having a dry mouth or tongue -Muscle cramps -Dizziness -Confusion -Urine that is dark yellow, or not needing to urinate for more than 5 hours How is cannabis hyperemesis syndrome treated? The main treatment is to stop using cannabis products. Vomiting usually gets better within a day or 2 of stopping. If you continue to have vomiting episodes even after stopping cannabis use, tell your doctor or nurse. They can try to figure out what else might be causing your symptoms. If you are dehydrated, you might need to get extra fluids through an IV. (An IV is a thin tube that goes into a vein.) Can cannabis hyperemesis syndrome be prevented? The only way to prevent this condition for sure is to avoid using cannabis products at all. Some people can use cannabis once in a while without having pro blems. But if you have already had cannabis hyperemesis syndrome, using it at all is likely to cause your symptoms to come back. If you are trying to stop using cannabis and having a hard time, tell your doctor or nurse. They can help you get support. This might involve counseling or support groups. Prescriptions: Pantoprazole [Protonix TAB] 20 mg PO QAM #14 tablet. Ondansetron [Zofran Odt] 4 mg PO Q8HR PRN #15 tab.rapdis PRN Reason: Nausea Referrals: [facility] [Provider Group] - 3-5 Days [facility] [Primary Care Provider] - 3-5 Days
[2021-01-31 19:46] LABS: Basophils % (Auto) 0.3 % (0.0-1.8); Lymphocytes # (Auto) 1.6 K/mm3 (1.2-5.4); Lymphocytes % (Auto) 11.7 % (13.4-35.0); Mean Corpuscular HGB Conc 36 % (30-34); Mean Corpuscular Volume 90 fl (79-97); Monocytes # (Auto) 0.9 K/mm3 (0.0-0.8); Monocytes % (Auto) 6.8 % (0.0-7.3); Platelet Count 349 K/mm3 (140-440); Red Blood Count 4.55 M/mm3 (3.65-5.03); Red Cell Distribution Width 14.1 % (13.2-15.2)
[2021-01-31 19:49] LABS: Hematocrit 40.9 % (30.3-42.9); Hemoglobin 14.7 gm/dl (10.1-14.3)
[2021-01-31 19:57] LABS: INR 0.95 (0.87-1.13)
[2021-01-31 19:58] LABS: Partial Thromboplastin Time 24.2 Sec. (24.2-36.6)
[2021-01-31 20:08] LABS: Alanine Aminotransferase 33 units/L (7-56); BUN/Creatinine Ratio 17; Blood Urea Nitrogen 17 mg/dL (7-17); Calcium 10.3 mg/dL (8.4-10.2); Hemolysis Index 8
[2021-01-31] MEDS ORDERED: POTASSIUM CHLORIDE 10 MEQ 10 MEQ/100 ML BAG IV ONE (20:47)
[2021-01-31] MEDS ORDERED: MORPHINE 4 MG/1 ML INJ IV ONE (20:48)
[2021-01-31 20:54] LABS: Bilirubin,Urine NEG (Negative); Blood,Urine MOD (Negative); Calcium Oxalate Crystals,Urine FEW; Color,Urine Amber (Yellow); Hyaline Casts,Urine 4 /LPF; Mucus,Urine 3+ /HPF
--- NOTE | 2021-01-31 22:29 | Cat Scan Report ---
CT ABDOMEN AND PELVIS WITH CONTRAST INDICATION / CLINICAL INFORMATION: N/V, epigastric pain, coffee ground emesis. TECHNIQUE: Axial CT images were obtained through the abdomen and pelvis after IV contrast. All CT sc ans at this location are performed using CT dose reduction for ALARA by means of automated exposure c ontrol. COMPARISON: None available. FINDINGS: LOWER CHEST: No significant abnormality. LIVER: No significant abnormality. GALLBLADDER: No significant abnormality. BILE DUCTS: No significant abnormality. PANCREAS: No significant abnormality. SPLEEN: No significant abnormality. ADRENALS: No significant abnormality. RIGHT KIDNEY / URETER: No significant abnormality. LEFT KIDNEY / URETER: No significant abnormality. STOMACH / SMALL BOWEL: No significant abnormality. COLON: No significant abnormality. APPENDIX: Nonvisualized. No pericecal inflammation. PERITONEUM: No free fluid. No free air. No fluid collection. LYMPH NODES: No significant adenopathy. AORTA / ARTERIES: No significant abnormality. IVC / VEINS: No significant abnormality. URINARY BLADDER: No significant abnormality. REPRODUCTIVE ORGANS: No significant abnormality. Trace free fluid within the pelvis, presumably physi ologic. ADDITIONAL FINDINGS: None. SKELETAL SYSTEM: No significant abnormality. IMPRESSION: 1. No acute abnormality. Signer Name: Royce Elizondo MD Signed: 01/31/2021 10:25 PM Workstation Name: [id number]
[2021-01-31] MEDS ORDERED: LACTATED RINGERS 2,000 ML IV ONE (22:52)
[2021-01-31] MEDS ORDERED: POTASSIUM CHLORIDE ER 20 MEQ TAB PO ONE (22:52)
--- NOTE | 2021-01-31 22:53 | Event Note ---
Date: 02/01/21 The patient was evaluated in the emergency department for symptoms described in the history of present illness. He/she was evaluated in the context of the global COVID-19 pandemic, which necessitated consideration that the patient might be at risk for infection with the virus that causes COVID-19. Institutional protocols and algorithms that pertain to the evaluation of patients at risk for COVID-19 are in a state of rapid change based on information released by regulatory bodies including the CDC and federal and state organizations. These policies and algorithms were followed during the patient's care in the emergency department. Please note that these policies, procedures and recommendations changed on a rapid basis. [id number] evaluation performed. The patient is a 25-year-old female, who is a chronic cannabis consumer, who presents to the ER with probable cannabinoid hyperemesis syndrome. She describes diffuse abdominal cramping, nausea, vomiting, intermittent coffee-ground emesis, no bright red blood per rectum, to me, denies black stool. Symptoms improved with a hot bath and hot shower. Abdomen soft and benign on my exam. Counseled patient to discontinue cannabis consumption. Laboratory studies consistent with dehydration, including ketonuria, metabolic acidosis. At this time, the patient is on a tablet device, and does not appear to be in any acute distress. Have ordered potassium repletion, IV fluids, and repeat basic metabolic panel. Extensively discussed this with EDWINA Bridges Plan is to perform rectal examination, repeat basic metabolic panel, and ascertain/demonstrate improvement in anion gap acidosis. Presuming this is the case, the patient may be discharged with antiemetics, proton pump inhibitors, she should not consume tobacco, alcohol, smoke products or marijuana, and she should follow-up with an outpatient primary care doctor or GI physician. Discussed this extensively with the patient as well. She articulated understanding. All questions answered. Vital Signs 01/31/21 01/31/21 01/31/21 17:49 19:42 22:19 Temperature 98.5 F 99.0 F Pulse Rate 105 H 95 H Respiratory 20 14 Rate Blood Pressure 152/125 Blood Pressure 141/98 156/101 [Right] O2 Sat by Pulse 100 100 Oximetry 01/31/21 22:20 Temperature Pulse Rate Respiratory Rate Blood Pressure Blood Pressure [Right] O2 Sat by Pulse 100 Oximetry Lab Results 10/12/21 10/12/21 10/12/21 Range/Units 19:24 19:24 19:24 WBC 13.8 H (4.5-11.0) K/mm3 RBC 4.55 (3.65-5.03) M/mm3 Hgb 14.7 H (10.1-14.3) gm/dl Hct 40.9 (30.3-42.9) % MCV 90 (79-97) fl MCH 32 (28-32) pg MCHC 36 H (30-34) % RDW 14.1 (13.2-15.2) % Plt Count 349 (140-440) K/mm3 Lymph % (Auto) 11.7 L (13.4-35.0) % Lea % (Auto) 6.8 (0.0-7.3) % Eos % (Auto) 0.0 (0.0-4.3) % Baso % (Auto) 0.3 (0.0-1.8) % Lymph # (Auto) 1.6 (1.2-5.4) K/mm3 Lea # (Auto) 0.9 H (0.0-0.8) K/mm3 Eos # (Auto) 0.0 (0.0-0.4) K/mm3 Baso # (Auto) 0.0 (0.0-0.1) K/mm3 Seg Neutrophils % 81.2 H (40.0-70.0) % Seg Neutrophils # 11.2 H (1.8-7.7) K/mm3 PT (12.2-14.9) Sec. INR (0.87-1.13) APTT (24.2-36.6) Sec. Sodium 135 L (137-145) mmol/L Potassium 3.0 L (3.6-5.0) mmol/L Chloride 94.2 L (98-107) mmol/L Carbon Dioxide 21 L (22-30) mmol/L Anion Gap 23 mmol/L BUN 17 (7-17) mg/dL Creatinine 1.0 (0.6-1.2) mg/dL Estimated GFR > 60 ml/min BUN/Creatinine Ratio 17 % Glucose 114 H (65-100) mg/dL Calcium 10.3 H (8.4-10.2) mg/dL Total Bilirubin 0.80 (0.1-1.2) mg/dL AST 30 (5-40) units/L ALT 33 (7-56) units/L Alkaline Phosphatase 60 (35-129) units/L Total Protein 9.3 H (6.3-8.2) g/dL Albumin 5.0 (3.9-5) g/dL Albumin/Globulin Ratio 1.2 % Lipase 17 (13-60) units/L HCG, Qual Negative (Negative) Urine Color (Yellow) Urine Turbidity (Clear) Urine pH (5.0-7.0) Ur Specific [place] (1.003-1.030) Urine Protein (Negative) mg/dL Urine Glucose (UA) (Negative) mg/dL Urine Ketones (Negative) mg/dL Urine Blood (Negative) Urine Nitrite (Negative) Urine Bilirubin (Negative) Urine Urobilinogen (<2.0) mg/dL Ur Leukocyte Esterase (Negative) Urine WBC (Auto) (0.0-6.0) /HPF Urine RBC (Auto) (0.0-6.0) /HPF U Epithel Cells (Auto) (0-13.0) /HPF Calcium Oxalate Crystal Hyaline Casts /LPF Urine Mucus /HPF 01/31/21 01/31/21 Range/Units 19:24 Unknown WBC (4.5-11.0) K/mm3 RBC (3.65-5.03) M/mm3 Hgb (10.1-14.3) gm/dl Hct (30.3-42.9) % MCV (79-97) fl MCH (28-32) pg MCHC (30-34) % RDW (13.2-15.2) % Plt Count (140-440) K/mm3 Lymph % (Auto) (13.4-35.0) % Lea % (Auto) (0.0-7.3) % Eos % (Auto) (0.0-4.3) % Baso % (Auto) (0.0-1.8) % Lymph # (Auto) (1.2-5.4) K/mm3 Lea # (Auto) (0.0-0.8) K/mm3 Eos # (Auto) (0.0-0.4) K/mm3 Baso # (Auto) (0.0-0.1) K/mm3 Seg Neutrophils % (40.0-70.0) % Seg Neutrophils # (1.8-7.7) K/mm3 PT 13.7 (12.2-14.9) Sec. INR 0.95 (0.87-1.13) APTT 24.2 (24.2-36.6) Sec. Sodium (137-145) mmol/L Potassium (3.6-5.0) mmol/L Chloride (98-107) mmol/L Carbon Dioxide (22-30) mmol/L Anion Gap mmol/L BUN (7-17) mg/dL Creatinine (0.6-1.2) mg/dL Estimated GFR ml/min BUN/Creatinine Ratio % Glucose (65-100) mg/dL Calcium (8.4-10.2) mg/dL Total Bilirubin (0.1-1.2) mg/dL AST (5-40) units/L ALT (7-56) units/L Alkaline Phosphatase (35-129) units/L Total Protein (6.3-8.2) g/dL Albumin (3.9-5) g/dL Albumin/Globulin Ratio % Lipase (13-60) units/L HCG, Qual (Negative) Urine Color [place] (Yellow) Urine Turbidity Slightly-cloudy (Clear) Urine pH 6.0 (5.0-7.0) Ur Specific [place] 1.032 H (1.003-1.030) Urine Protein 100 mg/dl (Negative) mg/dL Urine Glucose (UA) Neg (Negative) mg/dL Urine Ketones 20 (Negative) mg/dL Urine Blood Mod (Negative) Urine Nitrite Neg (Negative) Urine Bilirubin Neg (Negative) Urine Urobilinogen 2.0 (<2.0) mg/dL Ur Leukocyte Esterase Neg (Negative) Urine WBC (Auto) 6.0 (0.0-6.0) /HPF Urine RBC (Auto) 40.0 (0.0-6.0) /HPF U Epithel Cells (Auto) 7.0 (0-13.0) /HPF Calcium Oxalate Crystal Few Hyaline Casts 4 /LPF Urine Mucus 3+ /HPF CT ABDOMEN AND PELVIS WITH CONTRAST INDICATION / CLINICAL INFORMATION: N/V, epigastric pain, coffee ground emesis. TECHNIQUE: Axial CT images were obtained through the abdomen and pelvis after IV contrast. All CT scans at this location are performed using CT dose reduction for ALARA by means of automated exposure control. COMPARISON: None available. FINDINGS: LOWER CHEST: No significant abnormality. LIVER: No significant abnormality. GALLBLADDER: No significant abnormality. BILE DUCTS: No significant abnormality. PANCREAS: No significant abnormality. SPLEEN: No significant abnormality. ADRENALS: No significant ab normality. RIGHT KIDNEY / URETER: No significant abnormality. LEFT KIDNEY / URETER: No significant abnormality. STOMACH / SMALL BOWEL: No significant abnormality. COLON: No significant abnormality. APPENDIX: Nonvisualized. No pericecal inflammation. PERITONEUM: No free fluid. No free air. No fluid collection. LYMPH NODES: No significant adenopathy. AORTA / ARTERIES: No significant abnormality. IVC / VEINS: No significant abnormality. URINARY BLADDER: No significant abnormality. REPRODUCTIVE ORGANS: No significant abnormality. Trace free fluid within the pelvis, presumably physiologic. ADDIT IONAL FINDINGS: None. SKELETAL SYSTEM: No significant abnormality. IMPRESSION: 1. No acute abnormality. Signer Name: Royce Elizondo MD Signed: 01/31/2021 9:25 PM Workstation Name: [id number]
[2021-02-01] MEDS: POTASSIUM CHLORIDE 10 MEQ 10 MEQ/100 ML BAG IV SCH ×3 (01:01→02:14)
[2021-02-01 01:10] VITALS: BP 128/68
[2021-02-01 01:43] LABS: BUN/Creatinine Ratio 14; Blood Urea Nitrogen 11 mg/dL (7-17); Calcium 8.3 mg/dL (8.4-10.2); Hemolysis Index 4
== END 2021-02-01 02:18 | disposition home or self-care (01) ==
LOC: ED 17:42
DX: E87.6 Hypokalemia (principal); R10.13 Epigastric pain; R11.2 Nausea with vomiting, unspecified; Z87.891 Personal history of nicotine dependence
CPT/HCPCS: 36415; 74177; 80048; 80053; 81001; 83690; 83735; 84703; 85025; 85610; 85730; 96361; 96365; 96375; 99284; C9113; J1200; J2270; J2765; J3480; J7030; J7120; Q9967